=== PATIENT | female | born 1965 | race Caucasian/White ===

== ENCOUNTER 2017-03-15 06:50 | Emergency (ER) | payer OTHER ==
[2017-03-15 07:14] VITALS: BP 136/89; PULSE 69; RESP 16; TEMP 98.8; O2SAT 98
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
[2017-03-15] MEDS ORDERED: RABIES IMMUNE GLOBULIN 300 UNIT/2 ML VIAL IM ONE ×2 (07:43→08:30)
[2017-03-15] MEDS ORDERED: RABIES VACC, HUMAN DIPLOID/PF 2.5 UNIT VIAL (RABAVERT) IM ONE (07:43)
== END 2017-03-15 08:39 | disposition home or self-care (01) ==
DX: Z20.3 Contact with and (suspected) exposure to rabies (principal); Z23 Encounter for immunization